=== PATIENT | male | born 2005 | race Caucasian/White ===

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

== ENCOUNTER 2025-03-16 06:06 | Day surgery (SDC) | payer OTHER ==
[2025-03-14 11:57] VITALS: BMI 29.8
[2025-03-16] MEDS ORDERED: LIDOCAINE 1%/EPI 1:100000 (20 ML MULTI DOSE VIAL) ONE (09:14)
[2025-03-16] MEDS ORDERED: ROCURONIUM BROMIDE 50 MG/5 ML SYRINGE ONE ×2 (09:24→10:26)
[2025-03-16] MEDS ORDERED: MIDAZOLAM HCL 2 MG/2 ML SINGLE DOSE VIAL ONE (09:24)
[2025-03-16] MEDS ORDERED: SUCCINYLCHOLINE CHLORIDE 200 MG/10 ML SYRINGE ONE (09:24)
[2025-03-16] MEDS ORDERED: PROPOFOL 20 ML ONE (09:28)
[2025-03-16] MEDS: LIDOCAINE 1%/EPI 1:100000 (20 ML MULTI DOSE VIAL) IJ ONE ×3 (10:25→10:28)
[2025-03-16] MEDS: OXYMETAZOLINE 0.05% NASAL SOLUTION 15 ML BOTTLE NS ONE (10:25)
[2025-03-16] MEDS ORDERED: SUGAMMADEX SODIUM 200 MG/2 ML VIAL ONE (12:03)
[2025-03-16] MEDS: BACITRACIN ZINC 15 GM TUBE TOPICAL OINTMENT TP ONE ×2 (12:16)
[2025-03-16] MEDS: LACTATED RINGERS SOLUTION 1,000 ML IV SCH (13:27)
[2025-03-16] MEDS ORDERED: ONDANSETRON 4 MG/2 ML VIAL ONE (15:32)
[2025-03-16] MEDS: ONDANSETRON 4 MG/2 ML VIAL IVPUSH PRN (15:40)
[2025-03-16 17:05] VITALS: BP 114/77; PULSE 108; RESP 18; TEMP 98.6
== END 2025-03-16 17:00 | disposition home or self-care (01) ==
LOC: JASU-SURG 06:06
PROVIDERS: ATTEND Otolaryngology
PROC: 099Q8ZZ Drainage of Right Maxillary Sinus, Via Natural or Artificial Opening Endoscopic (ICD-10-PCS; 2025-03-16)
PROC: 8E09XBZ Computer Assisted Procedure of Head and Neck Region (ICD-10-PCS; 2025-03-16)
PROC: 09BV8ZZ Excision of Left Ethmoid Sinus, Via Natural or Artificial Opening Endoscopic (ICD-10-PCS; 2025-03-16)
PROC: 09BU8ZZ Excision of Right Ethmoid Sinus, Via Natural or Artificial Opening Endoscopic (ICD-10-PCS; 2025-03-16)
PROC: 099R8ZZ Drainage of Left Maxillary Sinus, Via Natural or Artificial Opening Endoscopic (ICD-10-PCS; principal; 2025-03-16 10:00)
DX: J32.0 Chronic maxillary sinusitis (principal)
CPT/HCPCS: 88304-TC; 88311-TC; 94760